=== PATIENT | female | born 1995 | race Caucasian/White ===

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

== ENCOUNTER 2017-05-19 11:02 | Emergency (ER) | payer OTHER ==
[~2017-05-19] VITALS: Ht 152.4 cm; Wt 68.9 kg
[2017-05-19] MEDS ORDERED: FLUO40CA (13:15)
[2017-05-19] MEDS ORDERED: NORG1TAB14 (13:15)
[2017-05-19] MEDS ORDERED: MONT10TA24 (13:15)
[2017-05-19] MEDS ORDERED: PRED10TA22 (13:15)
--- NOTE | 2017-05-19 13:30 | Diagnostic Imaging Report ---
INDICATION: Throat pain and difficulty breathing. TIME OF EXAMINATION: 1:45 PM. FINDINGS: The heart size is normal. The pulmonary vascularity is unremarkable. The lungs are clear. No infiltrate, effusion, or pneumothorax is detected. IMPRESSION: No acute cardiopulmonary process is detected. Dictated by: Dictated on workstation # [id number]
--- NOTE | 2017-05-19 14:12 | ED EENT ---
History of Present Illness General Chief Complaint: Oral/Throat Problems Stated Complaint: SWOLLEN THROAT,DIFFICULTY BREATHING Nursing Triage Note: PATIENT STATES THAT SHE WENT TO URGENT CARE FOR A RASH AND SORE THROAT. SHE WAS GIVEN STEROIDS AND TOLD TO GO TO ER IF WORSENING. SHE STATES THAT HER THROAT HURTS WORSE TODAY AND THAT IT HURTS TO TAKE A DEEP BREATH. Source: patient, family Exam Limitations: no limitations History of Present Illness Date Seen by Provider: May 19, 2017 Time Seen by Provider: 14:07 Initial Comments To ER becoming by parents with reports of rash and sore throat. This began last night with eyelid swelling, hives to her upper chest and behind her ears. She was seen at urgent care and given a shot of steroids, prescription for steroids and advised to take Benadryl. She has started the oral steroids today and has been taking Benadryl most recently this morning. She still reports a sensation of swelling in her throat and painful breathing. She cannot think of anything that might have caused this other than she did start fluoxetine for anxiety 2-3 weeks ago. She also had marie peppers about 2-3 days ago but cannot think of any new exposures. She was concerned that with the persistence of symptoms she might need an epinephrine injection. Timing/Duration: this evening Severity: moderate Location: throat Allergies and Home Medications Allergies Coded Allergies: erythromycin base (Unverified Adverse Reaction, Mild, RASH, 07/04/14) Home Medications Fexofenadine Hcl 180 Mg Tablet, 180 MG PO BID, (Reported) Fluoxetine HCl 40 Mg Capsule, (Reported) Montelukast Sodium 10 Mg Tablet, (Reported) Norgestimate-Ethinyl Estradiol 1 Each Tablet, (Reported) Nortriptyline Hcl 10 Mg Capsule, #30 (Reported) Prednisone 10 Mg Tab.ds.pk, (Reported) [Iron] , (Reported) Review of Systems Constitutional: see HPI Eyes: No Symptoms Reported Ears: No Symptoms Reported Nose: no symptoms reported Mouth: no symptoms reported Throat: see HPI, swelling Respiratory: no symptoms reported Cardiovascular: no symptoms reported Past [id number]-Mopdws Hx Patient Social History Recent Foreign Travel: No Contact w/Someone Who Travel: No Recent Infectious Disease Expo: No Ebola Symptoms: Denies Symptoms Listed Immunizations Up To Date PED Vaccines UTD: Yes Seasonal Allergies Seasonal Allergies: Yes (TAKES ALLERGY SHOTS) Surgeries History of Surgeries: No Respiratory History of Respiratory Disorde: Yes (ALLERGY INDUCED ASTHMA) Respiratory Disorders: Asthma Neurological History of Neurological Disord: No Reproductive System Hx Reproductive Disorders: No Gastrointestinal History of Gastrointestinal Di: No Musculoskeletal History of Musculoskeletal Dis: No Endocrine History of Endocrine Disorders: No Cancer History of Cancer: No Psychosocial History of Psychiatric Problem: No Integumentary History of Skin or Integumenta: No Blood Transfusions History of Blood Disorders: No Adverse Reaction to a Blood Tr: No Physical Exam Vital Signs Vital Signs - First Documented 05/19/17 11:34 Temp 97.9 Pulse 100 Resp 18 B/P (MAP) 116/77 General Appearance: WD/WN, no apparent distress Eyes: bilateral eye normal inspection, bilateral eye PERRL, bilateral eye EOMI Ears: bilateral ear auricle normal, bilateral ear canal normal, bilateral ear TM normal Mouth/Throat: normal mouth inspection, pharynx normal, other (no tongue swelling, no uvular swelling, no pharyngeal swelling or erythema. There is no stridor. Lungs are clear and without wheezing. There is no rash. There is no distress.) Neck: non-tender, full range of motion Respiratory: normal breath sounds, no respiratory distress, no accessory muscle use Gastrointestinal: normal bowel sounds, non tender Neurologic/Psychiatric: alert, normal mood/affect, oriented x 3 Skin: normal color, warm/dry Progress/Results/Core Measures Results/Orders Lab Results Laboratory Tests Test 05/19/17 13:16 Range/Units Group A Streptococcus Screen NEGATIVE NEGATIVE My Orders Orders - FELICIANO PARKINSON APRN Cbc With Automated Diff (05/19/17 13:12) Comprehensive Metabolic Panel (05/19/17 13:12) Monotest (05/19/17 13:12) Rapid Strep A Screen (05/19/17 13:12) Chest Pa/Lat (2 View) (05/19/17 13:12) Vital Signs/I&O Vital Sign - Last 12Hours 05/19/17 11:34 Temp 97.9 Pulse 100 Resp 18 B/P (MAP) 116/77 Departure Communication (Admissions) Progress Notes 1409- patient is already on Singulair, Yun, and then yesterday started Benadryl and Medrol Dosepak. 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 At this time there is no distress and there is no need for an epinephrine injection. Impression Impression: Primary Impression: Allergic reaction Disposition: 01 HOME, SELF-CARE Condition: Stable Departure-Patient Inst. Decision time for Depature: 14:10 Referrals: EVENS DALE DO (PCP/Family) Primary Care Physician Patient Instructions: NO INSTRUCTIONS GIVEN Add. Discharge Instructions: 1. It's difficult to say what exactly caused her allergic symptoms but I think it is reasonable to stop the fluoxetine since this is the only somewhat new medication. Return to the emergency room for any wheezing or difficulty breathing. Continue the Benadryl and steroids. Follow-up with Dr. Dale this week for recheck. If you do need to use the epinephrine pen at home then certainly do that presented to the emergency room immediately afterwards for further evaluation All discharge instructions reviewed with patient and/or family. Voiced understanding. Copy Copies To 1: EVENS DALE PETER J APRN May 19, 2017 14:12
== END 2017-05-19 14:15 | disposition home or self-care (01) ==
LOC: EDUNIT# 11:02 → ER 11:04
DX: T78.40XA Allergy, unspecified, initial encounter (principal); J45.909 Unspecified asthma, uncomplicated; Z79.52 Long term (current) use of systemic steroids; Z88.1 Allergy status to other antibiotic agents
CPT/HCPCS: 71046; 87430; 99282

== ENCOUNTER → 2017-11-01 | Outpatient (CLI) | payer OTHER ==
[~2017-11-01] MED LIST changes: +FLUO40CA; +NORG1TAB14; +PRED10TA22
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
== END ==
LOC: RAD 11:26
PROVIDERS: ATTEND Nurse Practitioner Family
DX: M54.2 Cervicalgia (principal); V89.2XXA Person injured in unspecified motor-vehicle accident, traffic, initial encounter
CPT/HCPCS: 72040

== ENCOUNTER → 2017-11-03 | Outpatient (CLI) | payer OTHER ==
[~2017-11-03] MED LIST changes: +CATHETER FLUSH 10 ML SYR IV PRN; +IOHEXOL 350 MG/ML 100 ML (OMNIPAQUE 350) VIAL IV ONE; +NS 100 ML (IVPB) BAG IV ONE
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
== END ==
LOC: RAD 10:05
PROVIDERS: ATTEND Nurse Practitioner Family
DX: H53.9 Unspecified visual disturbance (principal); R51 Headache; V89.2XXA Person injured in unspecified motor-vehicle accident, traffic, initial encounter
CPT/HCPCS: 70496

== ENCOUNTER 2018-12-01 13:05 | Outpatient (CLI) | payer OTHER ==
[~2018-12-01 13:05] MED LIST changes: -CATHETER FLUSH 10 ML SYR IV PRN; -IOHEXOL 350 MG/ML 100 ML (OMNIPAQUE 350) VIAL IV ONE; -NS 100 ML (IVPB) BAG IV ONE
== END 2018-12-01 13:40 | disposition home or self-care (01) ==
LOC: SLEEP 13:05
PROVIDERS: ATTEND Otolaryngology Otolaryngology/Facial Plastic Surgery
DX: G47.33 Obstructive sleep apnea (adult) (pediatric) (principal)

== ENCOUNTER → 2019-11-11 | Outpatient (CLI) | payer OTHER ==
[~2019-11-11] MED LIST changes: +MONT10TA26
== END ==
LOC: LABNPT 07:09
PROVIDERS: ATTEND Family Medicine
DX: Z53.9 Procedure and treatment not carried out, unspecified reason (principal); R05 Cough; R06.02 Shortness of breath; R50.9 Fever, unspecified